=== PATIENT | female | born 1995 | race Caucasian/White ===

== ENCOUNTER → 2017-10-20 19:40 | Observation (INO) ==
[2017-10-20 17:26] LABS: Basophils % 0.2 %; Eosinophils # 0.1 K/mcL (0.0-0.6); Eosinophils % 0.4 %; Hematocrit 36.8 % (35.3-44.9); Hemoglobin 12.3 g/dL (11.5-15.4); Immature Granulocytes % 0.4 % (0-4); Lymphocytes # 1.7 K/mcL (0.6-4.6); Lymphocytes % 15.1 %; Mean Corpuscular HGB Conc 33.4 g/dL (31.6-35.5); Mean Corpuscular Hemoglobin 29.4 pg (28.0-33.3); Mean Corpuscular Volume 87.8 fL (83.0-100.0); Mean Platelet Volume 11.6 fL (9.4-12.4); Monocytes # 0.5 K/mcL (0.0-1.3); Monocytes % 4.6 %; Neutrophils # 8.9 K/mcL (1.6-8.9); Platelet Count 186 K/mcL (140-400); Red Blood Count 4.19 M/mcL (3.82-4.97); Segmented Neutrophils % 79.3 %
[2017-10-20 17:49] LABS: Alanine Aminotransferase 17 Units/L (7-52); Aspartate Amino Transferase 21 Units/L (13-39); BUN/Creatinine Ratio 11 (6-26); Blood Urea Nitrogen 5 mg/dL (6-20); Lactate Dehydrogenase 141 Units/L (140-271); Uric Acid 3.4 mg/dL (2.3-7.6); eGFR For African Americans > 60 (> 60); eGFR For Non-African Americans > 60 (> 60)
--- NOTE | 2017-10-20 18:27 | OB/GYN Progress Note ---
Date of Encounter: 10/20/17 Time of Encounter: 18:24 - Assessment and Plan (1) 36 weeks gestation of Current Visit: Yes Status: Acute Follow up with Dr. Meneses as scheduled labor precautions given PIH precautions given Discharge home (2) Elevated blood pressure affecting in third trimester, antepartum Current Visit: Yes Status: Acute PIH evaluation results negative Subjective - Subjective Principal diagnosis: PIH evaluation Interval history: Is a 22-year-old female at 36 weeks 3 days gestation with an estimated date of of 11/14/17 who presents from her office visit for PIH evaluation. Her blood pressure is 162/100. She denies headache, blurry vision , right upper quadrant pain. She reports positive movement and denies contractions, leakage of fluid, vaginal bleeding. Antepartum ROS: movement normal, no new complaints, no loss of fluid, no vaginal bleeding, no contractions Objective - Vital Signs Vital Signs: Intake and Output 10/20/17 10/20/17 10/20/17 07:59 15:59 23:59 Other: Weight 91.6 kg Patient Weight 10/20/17 23:59 Weight 91.6 kg - Exam FHR: category 1 FHR comments: Baseline 140 Moderate variability Accelerations present 15 x 15 No decelerations FHR category I Auscultation: bilateral: normal Abdomen: Present: normal appearance, soft, gravid Uterus: Present: normal, firm - Labs Labs: Abnormal lab results WBC 11.2 K/mcL (4.3-11.1) H 10/20/17 16:53 RDW 18.0 % (11.5-14.5) H 10/20/17 16:53 BUN 5 mg/dL (6-20) L 10/20/17 16:53 Creatinine 0.46 mg/dL (0.60-1.20) L 10/20/17 16:53
[2017-10-20 19:13] LABS: Bilirubin,Urine Negative (Negative); Blood,Urine Negative (Negative); Clarity,Urine Clear (Clear); Color,Urine Yellow (Yellow); Glucose,Urine (UA) Normal (Normal); Ketones,Urine 40 mg/dL (Negative); Leukocyte Esterase,Urine Negative (Negative); Nitrite,Urine Negative (Negative); PH,Urine 6.5 pH Units (5.0-8.0); Protein,Urine Negative (Neg-Trace); Specific Gravity,Urine 1.023 (1.010-1.025); Urobilinogen,Urine Normal (Normal)
[2017-10-20 19:42] LABS: Amphetamine Screen,Urine Negative ng/mL (Cutoff=1000); Barbiturate Screen,Urine Negative ng/mL (Cutoff=200); Benzodiazepines Screen,Urine Negative ng/mL (Cutoff=200); Cannabinoid Screen,Urine Negative ng/mL (Cutoff = 50); Cocaine Screen,Urine Negative ng/mL (Cutoff= 300); Creatinine,Urine 113 mg/dL; Opiate Screen,Urine Negative ng/mL (Cutoff=300); Phencyclidine Screen,Urine Negative ng/mL (Cutoff=25); Protein/Creatinine Ratio,Urine 0.19 mg/mg (0.00-0.20)
== END | disposition home or self-care (01) ==
LOC: 1NENULAB
PROVIDERS: ADMIT Obstetrics & Gynecology; ATTEND Obstetrics & Gynecology

== ENCOUNTER 2017-10-28 16:23 | Inpatient (IN) ==
[2017-10-28] MEDS ORDERED: Naloxone 0.4 MG/ML INJ IVP PRN (16:31)
[2017-10-28] MEDS ORDERED: Famotidine 20 MG/2 ML VIAL IVP PRN (16:31)
[2017-10-28] MEDS ORDERED: Metoclopramide 10 MG/2 ML VIAL IVP PRN (16:33)
[2017-10-28] MEDS ORDERED: Ondansetron 4 MG/2 ML VIAL IVP PRN (16:33)
[2017-10-28] MEDS ORDERED: Ringers Solution, Lactated 1,000 ML IVC SCH (16:45)
[2017-10-28 17:18] LABS: Basophils % 0.2 %; Eosinophils # 0.1 K/mcL (0.0-0.6); Eosinophils % 0.4 %; Hematocrit 41.5 % (35.3-44.9); Hemoglobin 13.9 g/dL (11.5-15.4); Immature Granulocytes % 0.4 % (0-4); Lymphocytes # 2.3 K/mcL (0.6-4.6); Lymphocytes % 16.5 %; Mean Corpuscular HGB Conc 33.5 g/dL (31.6-35.5); Mean Corpuscular Hemoglobin 29.6 pg (28.0-33.3); Mean Corpuscular Volume 88.5 fL (83.0-100.0); Mean Platelet Volume 11.9 fL (9.4-12.4); Monocytes # 0.6 K/mcL (0.0-1.3); Monocytes % 4.3 %; Neutrophils # 10.8 K/mcL (1.6-8.9); Platelet Count 212 K/mcL (140-400); Red Blood Count 4.69 M/mcL (3.82-4.97); Red Cell Distribution Width 17.4 % (11.5-14.5); Segmented Neutrophils % 78.2 %
[2017-10-28 17:24] LABS: Amphetamine Screen,Urine Negative ng/mL (Cutoff=1000); Barbiturate Screen,Urine Negative ng/mL (Cutoff=200); Benzodiazepines Screen,Urine Negative ng/mL (Cutoff=200); Cannabinoid Screen,Urine Negative ng/mL (Cutoff = 50); Cocaine Screen,Urine Negative ng/mL (Cutoff= 300); Opiate Screen,Urine Negative ng/mL (Cutoff=300); Phencyclidine Screen,Urine Negative ng/mL (Cutoff=25)
[2017-10-28 17:58] LABS: Alanine Aminotransferase 23 Units/L (7-52); Aspartate Amino Transferase 33 Units/L (13-39); BUN/Creatinine Ratio 12 (6-26); Blood Urea Nitrogen 6 mg/dL (6-20); Lactate Dehydrogenase 231 Units/L (140-271); Uric Acid 3.1 mg/dL (2.3-7.6); eGFR For African Americans > 60 (> 60); eGFR For Non-African Americans > 60 (> 60)
[2017-10-28] MEDS ORDERED: Oxytocin 20 units/ LR 1000 mL 20 UNIT/1,000 ML BAG IVC SCH (18:00)
--- NOTE | 2017-10-28 18:10 | OB/GYN History & Physical ---
Date of Encounter: 10/28/17 Time of Encounter: 18:06 Assessment and Plan (1) 37 weeks gestation of Current visit: Yes Status: Acute admitted for delivery (2) Elevated blood pressure affecting in third trimester, antepartum Current visit: No Status: Acute Admitted for delivery Dr. Gross aware of POC History of Present Illness Chief complaint: Medical IOL for PIH HPI: Ms. Lundberg is a 22 year old female at 37w4d sent to labor and delivery from OB office. Dr. Meneses recommended IOL for PIH due to elevated BP of 148/78 this visit and 162/100 last visit in office and trace protein in urine. Patient denies DASILVA, visual disturbances or epigastric pain. Patient reports +FM. Blood type: O Positive Rubella: Immune Hep B: Nonreactive GBS: Negative Past Med Surg Social Fam HX - Past Medical History Source: patient Medical history: no medical history Psychiatric history: no psych history - Past Surgical History Surgical History: other - Social History Smoking Status: Never smoker Smokeless Tobacco Status: No Alcohol use: none Drug use: none Occupational status: employed Current living situation: Home - Independent Activity Level: Independent ambulation Recent Out of Country Travel Within the Last 8 Weeks: No Exposure or Possible Exposure to Illness During Travel: No - Family History Mother Adopted: No Living Status: Still Living Hx Family Cardiac Disorders: No Hx Family Respiratory Disorders: No Hx Family Cancer: No Hx Family GI Disorders: No Hx Family Genitourinary Disorders: No Hx Family Endocrine Disorder: No Hx Family Musculoskeletal Disorders: Yes (RA) Hx Family Neuromuscular Disorders: No Hx Family Neurologic Disorders: No Hx Family HEENT Disorders: No Hx Family Autoimmune Disorders: No Hx Family Reproductive Disorders: No Hx Family Psychosocial Disorders: No Hx Family Medical Disorders: No Obstetrical History - Pregnancies : 1 Para: 0 Term: 0 : 0 Ab's: 0 Livin Medications and Allergies Doxylamine Succinate [Unisom] 1 tab PO HS 10/20/17 [History] Ferrous Sulfate [Iron] 1 tab PO BID 10/20/17 [History] Vit Calc,Iron,Folic [ Vitamins] 1 tab PO DAILY 10/20/17 [ History] Vitamin B-6 1 tab PO DAILY 10/20/17 [History] 3 Allergy/AdvReac Type Severity Reaction Status Date / Time No Known Allergies Allergy Verified 10/20/17 16:53 Review of System OB - Constitutional Constitutional ROS IM: no chills, no fever(s), no headache(s) - Cardiovascular Cardiovascular: no chest pain, no dyspnea, no edema, no leg edema, no lightheadedness, no pedal edema, no rapid heart rate, no slow heart rate, no syncope - Respiratory Respiratory: no cough - Gastrointestinal Gastrointestinal: no abdominal pain, no constipation, no cramping, no diarrhea, no heartburn, no nausea, no vomiting - Genitourinary Genitourinary: no abnormal vaginal bleeding, no dysuria, no flank pain, no urinary frequency, no urinary hesitancy, no vaginal discharge, no vaginal odor, no vaginal pruritis Exam - Vital Signs Vital signs: Initial Vital Signs Temp Pulse Resp BP 98.0 F 114 14 143/72 10/28/17 17:01 10/28/17 17:01 10/28/17 17:01 10/28/17 17:01 - Constitutional Constitutional: well developed, well nourished, no acute distress, average body habitus - HEENT HEENT: Normocephaly, Mucus Membranes Moist - Neck Neck exam: full ROM, supple - Lungs Respiratory exam: CTAB - Cardiovascular Cardiovascular exam: RRR, +S1, +S2 - Abdomen Abdomen: Present: bowel sounds normal, gravid, non tender - Extremities Extremities exam: full ROM, normal capillary refill Deep Tendon Reflex Grade: 2+ Normal - Cervix Dilation: 2 (Per Dr. Meneses in office) Effacement: 80 Station: -3 - Uterus Uterus exam: Present: normal size, normal contour - Comments Comments: FHR 145 bpm moderate variability +15x15 accels no decels. Contractions every 2- 3 min. Cat. 1 tracing. Results Result Diagrams: 10/28/17 16:56 10/28/17 16:56 Abnormal lab results WBC 13.9 K/mcL (4.3-11.1) H 10/28/17 16:56 RDW 17.4 % (11.5-14.5) H 10/28/17 16:56 Neutrophils # 10.8 K/mcL (1.6-8.9) H 10/28/17 16:56 Creatinine 0.49 mg/dL (0.60-1.20) L 10/28/17 16:56 All other labs normal. - VTE Reasons for not Prescribing Prophylaxis: Treatment not Indicated - Low risk for VTE
--- NOTE | 2017-10-28 18:16 | Anesthesia Evaluation PreOp ---
Date of Encounter: 10/28/17 Time of Encounter: 18:14 - Past History Planned Operation: vaginal del, G1 PIH induction 37wk. Cardiac History: Denies any Significant Hx Pulmonary History: Denies Any Significant HX CHIEF CONTRACT OFFICER History: Denies Any Significant HX Other Medical History: Other (scolosis as teenager, yr follow up, no radiculopathy no chronic back pain reported.) Anesthesia History: No Prior Anesthetic Complications, Past Anesthesia Alcohol Use: none Drug use: none Medications and Allergies Doxylamine Succinate [Unisom] 1 tab PO HS 10/20/17 [History] Ferrous Sulfate [Iron] 1 tab PO BID 10/20/17 [History] Vit Calc,Iron,Folic [ Vitamins] 1 tab PO DAILY 10/20/17 [ History] Vitamin B-6 1 tab PO DAILY 10/20/17 [History] 3 Allergy/AdvReac Type Severity Reaction Status Date / Time No Known Allergies Allergy Verified 10/20/17 16:53 Anesthesia Results - Labs 10/28/17 16:56 10/28/17 16:56 Anesthesia Exam - HEENT Pupil (Motor): Pupils equal Mallampati: II Teeth: Normal Oral Opening: Greater than 3 - CHIEF CONTRACT OFFICER LOC: Oriented CHIEF CONTRACT OFFICER Motor: Normal RUE, Normal LUE, Normal RLE, Normal LLE, Normal Face CHIEF CONTRACT OFFICER Sensory: Normal: RUE, LUE, RLE, LLE, Face - Cardiac Rhythm: Regular Murmur: None - Pulmonary Breath Sounds: bilateral Clear Respiratory Effort: Symmetrical Anesthesia Assess/Plan ASA Score: 2 Modified Ada Scale for Level of Consciousness: Cooperative, oriented, and tranquil Anesthetic Plan: General, Regional Monitoring Plan: Standard Monitors Recovery Plan: PACU
[2017-10-28] MEDS ORDERED: EPHEDrine 50 MG/ML VIAL IVP PRN (18:17)
[2017-10-28] MEDS ORDERED: Epidural Premix (fent/bupiv) 110 ML EP SCH (18:30)
--- NOTE | 2017-10-29 01:06 | OB Labor Progress Note ---
Date of Encounter: 10/29/17 Time of Encounter: 00:40 Labor Progress Note - Subjective Subjective: Patient reports contractions are getting stronger. Patient continues to deny need for pain medication or intervention. - Cervix Cervix: 3/90/-1 - Heart Tones Heart Tones: 125 bpm moderate amount of variability +15x15 accels no decels noted. Cat. 1 tracing - [place]: 2-3 min apart - Interventions Interventions: SVE - Plan Plan: Continue labor management
--- NOTE | 2017-10-29 05:41 | OB Labor Progress Note ---
Date of Encounter: 10/29/17 Time of Encounter: 05:39 Labor Progress Note - Subjective Subjective: Patient resting in bed. Discussed POC with patient. Patient denies any questions or concerns. - Cervix Cervix: 3.5/90/-1 - Heart Tones Heart Tones: 135 bpm moderate variability +15x15 accels no decels noted. Cat. 1 tracing. - Tolna Tolna: 2-3 min - Interventions Interventions: SVE, AROM moderate amount of clear fluid. Patient tolerated well. - Plan Plan: Continue labor management
[2017-10-29] MEDS: *HR* Nalbuphine 10 MG/ML AMPUL IVP PRN ×2 (07:11→09:56)
--- NOTE | 2017-10-29 09:03 | OB Labor Progress Note ---
Date of Encounter: 10/29/17 Time of Encounter: 09:00 Labor Progress Note - Subjective Subjective: Patient is doing well with induction of labor. She denies any complaints at this time. - Cervix Cervix: 5/90/-1 - Heart Tones Heart Tones: 120's, category 1 - Stigler Stigler: q 2-3 minutes - Interventions Interventions: IUPC placed without difficulty - Plan Plan: Continue pitocin induction
[2017-10-29] MEDS ORDERED: Bupivacaine-MPF 0.25% 10 ML VIAL ONE (10:18)
[2017-10-29] MEDS ORDERED: *HR* FentaNYL (PF) 100 MCG/2 ML VIAL ONE (10:18)
[2017-10-29] MEDS ORDERED: Epidural Premix (fent/bupiv) 110 ML EP ONE (10:18)
--- NOTE | 2017-10-29 11:58 | Anesthesia Procedures ---
Date of Encounter: 10/29/17 Time of Encounter: 10:23 Procedures: Anesthesia - Epidural/Spinal Patient ID/Chart reviewed: Yes Patient examined: Yes OB Eval: Gestational age: 37 OB Eval: : 1 OB Eval: Hx Para: 0 OB Eval: Dilated at (cm): 6 OB Eval: Contractions: Non-stressed pattern Consent Obtained: Yes Supplemental Oxygen: None/Room Air Site Prep: Aseptic Technique, Sterile prep and drape, Povidone-Iodine 1% Patient position: upright Local Anesthetic: Lidocaine 1% Amount of Local Anesthetic used: 8 (over multiple attempts) Touhy Needle Gauge: 18 Touhy Needle Depth (cm): 9 Catheter Depth at Skin (cm): 20 Test Dose (1.5% Lido + Epi): Volume given (mls): 3 Test Dose Result: Negative Loading Dose: 0.25% Marcaine (mls): 8 Loading Dose: Fentanyl (mcg): 100 Loading Dose Administered: Thru Touhy Needle Infusion Med: 0.125% Bupivacaine w/ 2 mcg/ml Fentanyl Infusion Rate (mls/hr): [address]: Tegaderm, Tape Interspace Used: L4-L5 Loss of Resistance (MARY): Yes Blood: No CSF: No Paresthesia: No Procedure: Multiple attempts made starting at L2-3, per protocol for epidural placement. Unable to find epidural space, encountered bone each attempt, Final attempt was able to place in epidural space at L2-3, placed catheter, positive for heme, wouldn't clear. Called for second provider. Bruce White attempted multiple times, found epidural space at L 4-5, positive MARY, catheter placed and pump started. Vitals + FHT's: 3 Vital Signs Time 1023 1100 1140 1140 1145 1150 BP 148/77 165/82 136/77 147/67 145/73 129/6 Pulse 112 120 115 120 115 123 FHTs 140 130 130 130 140 140
--- NOTE | 2017-10-29 14:23 | OB/GYN Procedure Note ---
Delivery - Delivery Date: 10/29/17 Provider: Radha Meneses Intrapartum events: none Delivery induction: oxytocin, misoprostol Delivery augmentation: rupture of membranes Delivery monitor: external FHT, external uterine, internal uterine Anesthesia: epidural Quantitated Blood Loss: 150 - (s) Infant A Infant Delivery Date: 10/29/17 Delivery Time: 14:03 Presentation: vertex Position: GINA Route of delivery: Gender: Male Viability: Viable at 1 minute: 8 at 5 mins: 9 Shoulder Dystocia: not encountered Specimens collected: cord blood Placenta: spontaneous Cord: 3 umbilical vessels - Repair Episiotomy: none Laceration Description: Labial (right) - Complications Delivery complications: none Delivery comments: Called to room with patient 9 cm and +1 station. With maternal effort the cervix was reduced. Under maternal effort she delivered a viable male with Apgars 8 and 9 at one and 5 minutes respectively over an intact perineum. Following delivery of the head the was bulb suctioned. The remainder of the delivered with maternal effort. Weight is still Pending at the time of dictation. She did have a right labial laceration that was hemostatic without repair. Following cessation of pulsation of the umbilical cord was doubly clamped and cut. Cord blood was collected. Placenta delivered spontaneously, complete, and intact with a three-vessel cord. Uterus was firm with fundal massage. There were no perineal, vaginal, or cervical lacerations on exam. Mother and are recovering in the LDR in stable condition. - Disposition Mom disposition: stable in LDR disposition: stable in LDR
[2017-10-29] MEDS ORDERED: Oxytocin 20 units/ LR 1000 mL 20 UNIT/1,000 ML BAG IVC SCH (16:52)
[2017-10-29] MEDS ORDERED: Acetaminophen 325 MG TABLET PO PRN (16:52)
[2017-10-29] MEDS: Ibuprofen 600 MG TABLET PO PRN (22:29)
[2017-10-30] MEDS ORDERED: Prenatal Vit/FA 1 EACH TABLET PO SCH (09:00)
[2017-10-30] MEDS: Ibuprofen 600 MG TABLET PO PRN (09:16)
[2017-10-30 09:27] VITALS: BP 111/74
--- NOTE | 2017-10-30 10:00 | Discharge Summary ---
Date of Encounter: 10/30/17 Time of Encounter: 09:57 - Discharge Diagnosis (1) Vaginal delivery Priority: Primary Status: Acute Comments: Stable, meeting all PP milestones, breast and bottle feeding, desires discharge. - Discharge Medications Prescriptions: Ibuprofen [Motrin] 600 mg PO Q6HR PRN #60 tablet PRN Reason: Cramping Docusate [Colace] 100 mg PO BID #60 capsule Home Medications: Vit Calc,Iron,Folic [ Vitamins] 1 tab PO DAILY 10/20/17 [ History] Docusate [Colace] 100 mg PO BID #60 capsule 10/30/17 [Rx] Ibuprofen [Motrin] 600 mg PO Q6HR PRN #60 tablet 10/30/17 [Rx] Vit/FA 1 each PO DAILY tablet 10/30/17 [Rx] Allergies/Adverse Reactions: 3 Allergy/AdvReac Type Severity Reaction Status Date / Time No Known Allergies Allergy Verified 10/20/17 16:53 Data Procedures and tests throughout hospitalization: Laboratory Tests 10/28/17 10/28/17 10/28/17 16:56 16:56 16:56 WBC 13.9 H RBC 4.69 Hgb 13.9 Hct 41.5 MCV 88.5 MCH 29.6 MCHC 33.5 RDW 17.4 H Plt Count 212 MPV 11.9 Immature Gran % 0.4 Seg Neutrophils % 78.2 Lymphocytes % 16.5 Monocytes % 4.3 Eosinophils % 0.4 Basophils % 0.2 Neutrophils # 10.8 H Lymphocytes # 2.3 Monocytes # 0.6 Eosinophils # 0.1 Basophils # 0.0 BUN 6 Creatinine 0.49 L Est GFR ( Amer) > 60 Est GFR (Non-Af Amer) > 60 BUN/Creatinine Ratio 12 Uric Acid 3.1 AST 33 ALT 23 Lactate Dehydrogenase 231 Urine Opiates Screen Negative Ur Barbiturates Screen Negative Ur Phencyclidine Scrn Negative Ur Amphetamines Screen Negative U Benzodiazepines Scrn Negative Urine Cocaine Screen Negative U Marijuana (THC) Screen Negative Date of admission: 10/28/17 16:23 Primary care physician: Leonel Tellez MD Consults: 10/29/17 16:52 Consult to Machine Packaging Technician [CONS] Routine Comment: Vaginal delivery, consult needed Discharging clinician: Yumiko Magana Anticipated date of discharge: 10/30/17 - Patient Status Disposition: Home, Self-Care Condition: Good Functional capacity at discharge: independent ambulation Overall status at discharge: patient is back to baseline - Discharge Instructions Follow Up With: Leonel Tellez MD [Primary Care Provider] - Radha Meneses DO [Partnered Physician] - - Diet and Activity Activity: resume usual activities as tolerated Diet: regular diet Hospital Course Reason for admission: induction of labor, IUP at term Delivery: Episiotomy: none Laceration: none Other procedures: none complications: none Discharge diagnosis: IUP at term delivered baby: male Hospital course: Delivery - Delivery Date: 10/29/17 Provider: Radha Meneses Intrapartum events: none Delivery induction: oxytocin, misoprostol Delivery augmentation: rupture of membranes Delivery monitor: external FHT, external uterine, internal uterine Anesthesia: epidural Quantitated Blood Loss: 150 - (s) A Delivery Date: 10/29/17 Delivery Time: 14:03 Presentation: vertex Position: GINA Route of delivery: Gender: Male Viability: Viable at 1 minute: 8 at 5 mins: 9 Shoulder Dystocia: not encountered Specimens collected: cord blood Placenta: spontaneous Cord: 3 umbilical vessels - Repair Episiotomy: none Laceration Description: Labial (right) - Complications Delivery complications: none Delivery comments: Called to room with patient 9 cm and +1 station. With maternal effort the cervix was reduced. Under maternal effort she delivered a viable male with Apgars 8 and 9 at one and 5 minutes respectively over an intact perineum. Following delivery of the head the was bulb suctioned. The remainder of the infant delivered with maternal effort. Weight is still Pending at the time of dictation. She did have a right labial laceration that was hemostatic without repair. Following cessation of pulsation of the umbilical cord was doubly clamped and cut. Cord blood was collected. Placenta delivered spontaneously, complete, and intact with a three-vessel cord. Uterus was firm with fundal massage. There were no perineal, vaginal, or cervical lacerations on exam. Mother and are recovering in the LDR in stable condition. - Disposition Mom disposition: stable in PP Time Attestation: Total time spent providing and/or coordinating discharge services: Time Spent: Less than 30 minutes Exam - Constitutional Vitals: Temp Pulse Resp BP Pulse Ox 97.6 F 84 16 111/74 99 10/30/17 09:26 10/30/17 09:26 10/30/17 09:26 10/30/17 09:26 10/30/17 03:21 General appearance IM: A&O X 3 - Respiratory Respiratory exam: Present: CTAB - Cardiovascular Cardiovascular exam IM: Present: RRR - GI/Abdominal GI/Abdominal exam IM: soft - Uterine Tone: Firm Uterus Position: At Umbilicus - Extremities Exam Extremities exam IM: Present: normal inspection - Neurological Exam Neurological exam: normal gait, oriented X3 - Psychiatric Additional comments: Reports good mood
== END 2017-10-30 13:35 | disposition home or self-care (01) | DRG 775 ==
LOC: 1NENULAB 16:23 → 1NENUOBS 10-29 17:06
PROVIDERS: ADMIT Student in an Organized Health Care Education/Training Program; ATTEND Student in an Organized Health Care Education/Training Program